=== PATIENT | male | born 1935 | race Caucasian/White ===

== ENCOUNTER 2019-11-29 13:02 | Inpatient (IN) ==
[2019-11-29 13:54] LABS: Basophils % 0.4 %; Eosinophils % 0.4 %; Hematocrit 34.7 % (37.5-50.1); Hemoglobin 10.6 g/dL (12.9-16.9); Immature Granulocytes % 0.3 % (0-4); Lymphocytes # 1.1 K/mcL (0.6-4.6); Mean Corpuscular HGB Conc 30.5 g/dL (31.6-35.5); Mean Corpuscular Hemoglobin 27.5 pg (28.0-33.3); Mean Corpuscular Volume 90.1 fL (83.0-100.0); Mean Platelet Volume 10.5 fL (9.4-12.4); Monocytes # 0.8 K/mcL (0.0-1.3); Neutrophils # 7.5 K/mcL (1.6-8.9); Platelet Count 259 K/mcL (140-400); Red Blood Count 3.85 M/mcL (4.19-5.50); Red Cell Distribution Width 17.5 % (11.5-14.5); Segmented Neutrophils % 78.9 %; White Blood Count 9.5 K/mcL (4.3-11.1)
[2019-11-29] MEDS ORDERED: *HR* Promethazine 25 MG/ML VIAL IVP PRN (14:07)
[2019-11-29] MEDS ORDERED: Naloxone 0.4 MG/ML INJ IVP PRN (14:07)
[2019-11-29] MEDS ORDERED: Acetaminophen 325 MG TABLET PO PRN (14:07)
[2019-11-29 14:13] LABS: Albumin 3.5 g/dL (3.5-5.7); Albumin/Globulin Ratio 0.8 (1.1-2.2); Bilirubin,Direct 0.4 mg/dL (0.0-0.2); Bilirubin,Indirect 0.5 mg/dL (0.0-1.0); Bilirubin,Total 0.9 mg/dL (0.3-1.0); Calcium 9.4 mg/dL (8.6-10.3); Globulin 4.3 g/dL (2.4-3.5); Potassium 3.6 mEq/L (3.5-5.1); Total Protein 7.8 g/dL (6.4-8.9); Troponin I 0.05 ng/mL (< 0.04)
[2019-11-29] MEDS ORDERED: Perflutren Lipid Microsphere 1.3 ML in 0.9 % Sodium Chloride 8.7 ML IVP PRN (14:14)
[2019-11-29] MEDS ORDERED: Dextrose Gel 15 GM/37.5 ML TUBE PO PRN ×2 (14:15)
[2019-11-29] MEDS ORDERED: *HR* Dextrose 50 % in Water (Vial) 50 ML VIAL IVP PRN (14:26)
[2019-11-29] MEDS ORDERED: D5% in Water 1,000 ML IVC PRN (14:26)
[2019-11-29] MEDS ORDERED: Furosemide 40 MG/4 ML VIAL IVP ONE (14:46)
[2019-11-29] MEDS ORDERED: Aspirin 325 MG TABLET PO ONE (15:09)
[2019-11-29 15:49] LABS: INR 1.8; Prothrombin Time 20.2 Seconds (9.4-12.1)
[2019-11-29 16:32] LABS: Bilirubin,Urine Negative (Negative); Blood,Urine Negative (Negative); Clarity,Urine Clear (Clear); Color,Urine Yellow (Yellow); Glucose,Urine (UA) Normal (Normal); Ketones,Urine Negative (Negative); Leukocyte Esterase,Urine Negative (Negative); Nitrite,Urine Negative (Negative); Protein,Urine Trace mg/dL (Neg-Trace); Specific Gravity,Urine 1.014 (1.010-1.025)
[2019-11-29] MEDS: carvediloL 6.25 MG TABLET PO SCH (18:05)
[2019-11-29] MEDS: Insulin LISPRO 300 UNITS/3 ML VIAL SQ SCH ×2 (18:05→21:37)
[2019-11-29] MEDS: Apixaban 2.5 MG TABLET PO SCH (21:26)
[2019-11-29] MEDS: Furosemide 40 MG/4 ML VIAL IVP SCH (21:27)
[2019-11-29] MEDS: Sacubitril/Valsartan 97/103 MG 1 TAB TABLET PO SCH (21:27)
[2019-11-30 01:26] LABS: Hematocrit 34.9 % (37.5-50.1); Hemoglobin 10.3 g/dL (12.9-16.9); Mean Corpuscular HGB Conc 29.5 g/dL (31.6-35.5); Mean Corpuscular Hemoglobin 27.1 pg (28.0-33.3); Mean Corpuscular Volume 91.8 fL (83.0-100.0); Mean Platelet Volume 11.1 fL (9.4-12.4); Red Blood Count 3.8 M/mcL (4.19-5.50); Red Cell Distribution Width 17.8 % (11.5-14.5); White Blood Count 11.6 K/mcL (4.3-11.1)
[2019-11-30 02:37] LABS: BUN/Creatinine Ratio 15 (6-26); Blood Urea Nitrogen 20 mg/dL (8-23); Calcium 8.9 mg/dL (8.6-10.3); Carbon Dioxide 27 mEq/L (23-29); Chloride 97 mEq/L (98-107); Glucose 138 mg/dL (70-105); Osmolality,Calculated 289 (280-300); Phosphorous 3.9 mg/dL (2.7-4.5); Potassium 3.7 mEq/L (3.5-5.1); Sodium 137 mEq/L (136-145); eGFR For African Americans > 60 (> 60); eGFR For Non-African Americans 50 (> 60)
[2019-11-30] MEDS: Insulin LISPRO 300 UNITS/3 ML VIAL SQ SCH ×4 (08:16→20:41)
[2019-11-30] MEDS: Apixaban 2.5 MG TABLET PO SCH ×2 (08:33→20:41)
[2019-11-30] MEDS: carvediloL 6.25 MG TABLET PO SCH ×2 (08:33→16:29)
[2019-11-30] MEDS: Furosemide 40 MG/4 ML VIAL IVP SCH (08:33)
[2019-11-30] MEDS: Sacubitril/Valsartan 97/103 MG 1 TAB TABLET PO SCH ×2 (08:34→20:41)
[2019-11-30 16:07] LABS: ABG Base Excess 12 mEq/L (-2 to 3); ABG HCO3 39 mEq/L (21-27); ABG Oxygen Saturation 95 % (95-98); ABG PCO2 66 mmHg (35-45); ABG PH 7.38 pH Units (7.32-7.45); ABG PO2 81 mmHg (85-104); ABG TCO2 41 mEq/L (20-26)
[2019-11-30] MEDS: metOLazone 5 MG TABLET PO SCH (16:29)
[2019-11-30] MEDS: Furosemide 240 MG in 0.9 % Sodium Chloride 96 ML IVC SCH (18:20)
[2019-11-30] MEDS: cefTRIAXone 1,000 MG in Water for inj. (sterile) 10 ML IVP SCH (18:20)
[2019-11-30 22:41] LABS: Calcium 9.1 mg/dL (8.6-10.3); Potassium 3.3 mEq/L (3.5-5.1)
[2019-12-01 03:25] LABS: Basophils % 0.4 %; Eosinophils # 0.1 K/mcL (0.0-0.6); Eosinophils % 1.4 %; Hematocrit 30.9 % (37.5-50.1); Hemoglobin 9.3 g/dL (12.9-16.9); Immature Granulocytes % 0.2 % (0-4); Lymphocytes # 1.3 K/mcL (0.6-4.6); Lymphocytes % 13.3 %; Mean Corpuscular HGB Conc 30.1 g/dL (31.6-35.5); Mean Corpuscular Hemoglobin 27.1 pg (28.0-33.3); Mean Corpuscular Volume 90.1 fL (83.0-100.0); Mean Platelet Volume 10.5 fL (9.4-12.4); Monocytes # 1.1 K/mcL (0.0-1.3); Monocytes % 11.7 %; Neutrophils # 6.9 K/mcL (1.6-8.9); Platelet Count 202 K/mcL (140-400); Red Blood Count 3.43 M/mcL (4.19-5.50); Red Cell Distribution Width 17.3 % (11.5-14.5); White Blood Count 9.5 K/mcL (4.3-11.1)
[2019-12-01 03:39] LABS: Potassium 3.2 mEq/L (3.5-5.1)
[2019-12-01] MEDS: Insulin LISPRO 300 UNITS/3 ML VIAL SQ SCH ×4 (08:27→20:15)
[2019-12-01] MEDS: carvediloL 6.25 MG TABLET PO SCH ×2 (08:37→17:38)
[2019-12-01] MEDS: Apixaban 2.5 MG TABLET PO SCH ×2 (08:37→20:20)
[2019-12-01] MEDS: metOLazone 5 MG TABLET PO SCH (08:38)
[2019-12-01] MEDS: Sacubitril/Valsartan 97/103 MG 1 TAB TABLET PO SCH ×2 (08:38→20:20)
[2019-12-01] MEDS: Furosemide 240 MG in 0.9 % Sodium Chloride 96 ML IVC SCH ×2 (17:01→17:38)
[2019-12-01] MEDS: cefTRIAXone 1,000 MG in Water for inj. (sterile) 10 ML IVP SCH (17:38)
[2019-12-02 05:44] LABS: Basophils % 0.4 %; Eosinophils # 0.2 K/mcL (0.0-0.6); Eosinophils % 1.9 %; Hematocrit 31.3 % (37.5-50.1); Hemoglobin 9.6 g/dL (12.9-16.9); Immature Granulocytes % 0.2 % (0-4); Lymphocytes # 1.3 K/mcL (0.6-4.6); Mean Corpuscular HGB Conc 30.7 g/dL (31.6-35.5); Mean Corpuscular Hemoglobin 27.9 pg (28.0-33.3); Mean Platelet Volume 10.6 fL (9.4-12.4); Monocytes # 1.1 K/mcL (0.0-1.3); Monocytes % 11.4 %; Neutrophils # 6.7 K/mcL (1.6-8.9); Platelet Count 212 K/mcL (140-400); Red Blood Count 3.44 M/mcL (4.19-5.50); Red Cell Distribution Width 17.5 % (11.5-14.5); Segmented Neutrophils % 72.1 %; White Blood Count 9.3 K/mcL (4.3-11.1)
[2019-12-02 06:09] LABS: Calcium 8.8 mg/dL (8.6-10.3); Phosphorous 3.9 mg/dL (2.7-4.5); Potassium 3.5 mEq/L (3.5-5.1)
[2019-12-02] MEDS: Insulin LISPRO 300 UNITS/3 ML VIAL SQ SCH ×4 (08:07→19:47)
[2019-12-02 08:11] LABS: ABG Base Excess 15 mEq/L (-2 to 3); ABG HCO3 42 mEq/L (21-27); ABG Oxygen Saturation 91 % (95-98); ABG PCO2 67 mmHg (35-45); ABG PO2 65 mmHg (85-104); ABG TCO2 44 mEq/L (20-26)
[2019-12-02] MEDS: carvediloL 6.25 MG TABLET PO SCH ×2 (08:56→18:09)
[2019-12-02] MEDS: Sacubitril/Valsartan 97/103 MG 1 TAB TABLET PO SCH (08:56)
[2019-12-02] MEDS: Apixaban 2.5 MG TABLET PO SCH ×2 (08:56→20:45)
[2019-12-02] MEDS: metOLazone 5 MG TABLET PO SCH (08:56)
[2019-12-02] MEDS ORDERED: acetaZOLAMIDE 250 MG TABLET PO ONE (13:27)
[2019-12-02] MEDS ORDERED: Furosemide 240 MG in 0.9 % Sodium Chloride 96 ML IVC SCH (15:56)
[2019-12-02] MEDS: cefTRIAXone 1,000 MG in Water for inj. (sterile) 10 ML IVP SCH (18:10)
[2019-12-02] MEDS: Sacubitril/Valsartan 49/51 MG 1 TABLET PO SCH (21:45)
[2019-12-03 04:52] LABS: Basophils % 0.4 %; Eosinophils # 0.2 K/mcL (0.0-0.6); Eosinophils % 1.6 %; Hematocrit 30.3 % (37.5-50.1); Hemoglobin 9.1 g/dL (12.9-16.9); Immature Granulocytes % 0.4 % (0-4); Lymphocytes # 1.3 K/mcL (0.6-4.6); Lymphocytes % 13.7 %; Mean Corpuscular Hemoglobin 27.4 pg (28.0-33.3); Mean Corpuscular Volume 91.3 fL (83.0-100.0); Mean Platelet Volume 10.3 fL (9.4-12.4); Monocytes % 10.5 %; Neutrophils # 7.1 K/mcL (1.6-8.9); Platelet Count 197 K/mcL (140-400); Red Blood Count 3.32 M/mcL (4.19-5.50); Red Cell Distribution Width 17.3 % (11.5-14.5); Segmented Neutrophils % 73.4 %; White Blood Count 9.7 K/mcL (4.3-11.1)
[2019-12-03 05:08] LABS: Magnesium 2.1 mg/dL (1.6-2.6); Phosphorous 4.1 mg/dL (2.7-4.5); Potassium 3.3 mEq/L (3.5-5.1)
[2019-12-03] MEDS: Insulin LISPRO 300 UNITS/3 ML VIAL SQ SCH ×4 (08:31→20:45)
[2019-12-03] MEDS: carvediloL 6.25 MG TABLET PO SCH ×2 (08:46→17:20)
[2019-12-03] MEDS: Sacubitril/Valsartan 49/51 MG 1 TABLET PO SCH ×2 (08:46→20:53)
[2019-12-03] MEDS ORDERED: acetaZOLAMIDE 250 MG TABLET PO ONE (09:27)
[2019-12-03] MEDS: Furosemide 40 MG TABLET PO SCH ×2 (10:33→17:20)
[2019-12-03] MEDS ORDERED: 0.9 % Sodium Chloride 1,000 ML ONE ×2 (11:17→12:10)
[2019-12-03] MEDS ORDERED: Nitroglycerin 1,000 MCG/10 ML VIAL IV ONE (11:17)
[2019-12-03] MEDS ORDERED: *HR* Heparin 10,000 UNIT/10 ML VIAL ONE (11:17)
[2019-12-03] MEDS ORDERED: Heparin 1,000 UNITS/500 mL 500 ML ONE (11:17)
[2019-12-03] MEDS ORDERED: ISOVUE-370 200 ML INFUS..BTL ONE (11:17)
[2019-12-03] MEDS ORDERED: *HR* FentaNYL (PF) 100 MCG/2 ML VIAL ONE (12:09)
[2019-12-03] MEDS ORDERED: *HR* Midazolam HCl 2 MG/2 ML VIAL ONE (12:09)
[2019-12-03] MEDS ORDERED: Tirofiban 12.5 MG/250ML 12.5 MG/250 ML BAG IVC SCH (12:15)
[2019-12-03] MEDS: Apixaban 2.5 MG TABLET PO SCH ×2 (17:11→20:54)
[2019-12-03] MEDS: cefTRIAXone 1,000 MG in Water for inj. (sterile) 10 ML IVP SCH (17:20)
[2019-12-03] MEDS ORDERED: *HR* Ticagrelor 90 MG TABLET PO SCH (21:00)
[2019-12-04 02:07] LABS: Basophils # 0.1 K/mcL (0.0-0.2); Basophils % 0.6 %; Eosinophils # 0.2 K/mcL (0.0-0.6); Eosinophils % 2.2 %; Hematocrit 30.4 % (37.5-50.1); Hemoglobin 9.2 g/dL (12.9-16.9); Immature Granulocytes % 0.4 % (0-4); Lymphocytes # 1.1 K/mcL (0.6-4.6); Lymphocytes % 13.6 %; Mean Corpuscular HGB Conc 30.3 g/dL (31.6-35.5); Mean Corpuscular Hemoglobin 27.8 pg (28.0-33.3); Mean Corpuscular Volume 91.8 fL (83.0-100.0); Mean Platelet Volume 10.4 fL (9.4-12.4); Monocytes % 12.2 %; Neutrophils # 5.8 K/mcL (1.6-8.9); Platelet Count 190 K/mcL (140-400); Red Blood Count 3.31 M/mcL (4.19-5.50); Red Cell Distribution Width 17.4 % (11.5-14.5); White Blood Count 8.1 K/mcL (4.3-11.1)
[2019-12-04 02:14] LABS: Calcium 9.4 mg/dL (8.6-10.3); Potassium 3.9 mEq/L (3.5-5.1)
[2019-12-04] MEDS: Insulin LISPRO 300 UNITS/3 ML VIAL SQ SCH ×4 (08:39→20:14)
[2019-12-04] MEDS: Furosemide 40 MG TABLET PO SCH ×2 (08:51→16:43)
[2019-12-04] MEDS: Apixaban 2.5 MG TABLET PO SCH ×2 (08:52→20:20)
[2019-12-04] MEDS: Sacubitril/Valsartan 49/51 MG 1 TABLET PO SCH ×2 (08:53→20:21)
[2019-12-04] MEDS: carvediloL 6.25 MG TABLET PO SCH ×2 (08:53→16:43)
[2019-12-04] MEDS: Spironolactone 25 MG TABLET PO SCH (12:05)
[2019-12-04] MEDS: cefTRIAXone 1,000 MG in Water for inj. (sterile) 10 ML IVP SCH (16:57)
[2019-12-05 05:24] LABS: Basophils % 0.3 %; Eosinophils # 0.2 K/mcL (0.0-0.6); Eosinophils % 1.8 %; Hematocrit 31.9 % (37.5-50.1); Hemoglobin 9.5 g/dL (12.9-16.9); Immature Granulocytes % 0.3 % (0-4); Lymphocytes # 1.2 K/mcL (0.6-4.6); Lymphocytes % 13.5 %; Mean Corpuscular HGB Conc 29.8 g/dL (31.6-35.5); Mean Corpuscular Hemoglobin 27.5 pg (28.0-33.3); Mean Corpuscular Volume 92.2 fL (83.0-100.0); Monocytes % 11.5 %; Neutrophils # 6.5 K/mcL (1.6-8.9); Platelet Count 200 K/mcL (140-400); Red Blood Count 3.46 M/mcL (4.19-5.50); Red Cell Distribution Width 17.3 % (11.5-14.5); Segmented Neutrophils % 72.6 %; White Blood Count 8.9 K/mcL (4.3-11.1)
[2019-12-05 05:44] LABS: Calcium 9.5 mg/dL (8.6-10.3); Potassium 3.7 mEq/L (3.5-5.1)
[2019-12-05 07:05] VITALS: BP 97/55
[2019-12-05] MEDS: Insulin LISPRO 300 UNITS/3 ML VIAL SQ SCH (07:37)
[2019-12-05] MEDS: carvediloL 6.25 MG TABLET PO SCH (07:46)
[2019-12-05] MEDS: Furosemide 40 MG TABLET PO SCH (07:46)
[2019-12-05] MEDS: Apixaban 2.5 MG TABLET PO SCH (07:46)
[2019-12-05] MEDS: Spironolactone 25 MG TABLET PO SCH (07:46)
[2019-12-05] MEDS: Sacubitril/Valsartan 49/51 MG 1 TABLET PO SCH (07:46)
== END 2019-12-05 13:40 | disposition home or self-care (01) | DRG 286 ==
LOC: 3BNU 13:02 → EMEROOARM 13:02 → 3BNU 17:27
PROVIDERS: ADMIT Internal Medicine; ATTEND Internal Medicine

== ENCOUNTER 2020-12-05 19:56 | Inpatient (IN) ==
[2020-12-05 21:35] LABS: Basophils % 0.3 %; Eosinophils # 0.1 K/mcL (0.0-0.6); Eosinophils % 0.9 %; Hematocrit 31.5 % (37.5-50.1); Hemoglobin 9.7 g/dL (12.9-16.9); Immature Granulocytes % 0.2 % (0-4); Lymphocytes # 1.3 K/mcL (0.6-4.6); Lymphocytes % 14.5 %; Mean Corpuscular HGB Conc 30.8 g/dL (31.6-35.5); Mean Platelet Volume 10.1 fL (9.4-12.4); Monocytes # 0.7 K/mcL (0.0-1.3); Monocytes % 8.4 %; Neutrophils # 6.6 K/mcL (1.6-8.9); Platelet Count 210 K/mcL (140-400); Red Blood Count 3.35 M/mcL (4.19-5.50); Red Cell Distribution Width 17.7 % (11.5-14.5); Segmented Neutrophils % 75.7 %; White Blood Count 8.7 K/mcL (4.3-11.1)
[2020-12-05 21:41] LABS: VBG Ionized Calcium 1.24 mmol/L (1.15-1.35)
[2020-12-05 21:54] LABS: Albumin 3.7 g/dL (3.5-5.7); Albumin/Globulin Ratio 0.8 (1.1-2.2); Bilirubin,Total 0.4 mg/dL (0.3-1.0); Calcium 9.6 mg/dL (8.6-10.3); Globulin 4.5 g/dL (2.4-3.5); Magnesium 1.8 mg/dL (1.6-2.6); Total Protein 8.2 g/dL (6.4-8.9)
[2020-12-05] MEDS ORDERED: Insulin Human Regular 10 UNIT in 0.9 % Sodium Chloride 10 ML IV ONE (22:35)
[2020-12-05] MEDS ORDERED: Calcium Chloride 1,000 MG in 0.9 % Sodium Chloride 100 ML IVPB ONE (22:35)
[2020-12-05] MEDS ORDERED: *HR* Dextrose 50 % in Water (Vial) 50 ML VIAL IVP ONE (22:45)
[2020-12-05] MEDS ORDERED: 0.9 % Sodium Chloride 1,000 ML IVC ONE (22:46)
[2020-12-05 22:59] LABS: Bilirubin,Urine Negative (Negative); Blood,Urine Negative (Negative); Clarity,Urine Clear (Clear); Color,Urine Light-Yellow (Yellow); Glucose,Urine (UA) Normal (Normal); Hyaline Casts,Urine Few per lpf (None Seen); Ketones,Urine Negative (Negative); Leukocyte Esterase,Urine Moderate (Negative); Mucus,Urine Few per lpf (None-Few); Nitrite,Urine Negative (Negative); Protein,Urine Trace mg/dL (Neg-Trace); RBC,Urine 0-3 per hpf (0-3); Specific Gravity,Urine 1.013 (1.010-1.025); Squamous Epithelial Cell,Urine Few per hpf (None-Few); Urobilinogen,Urine Normal (Normal); WBC,Urine 15-30 per hpf (0-3)
[2020-12-05] MEDS ORDERED: SODIUM ZIRCONIUM CYCLOSILICATE 5 GM POWD.PACK PO STA (23:04)
[2020-12-06] MEDS ORDERED: Acetaminophen 325 MG TABLET PO PRN (00:47)
[2020-12-06] MEDS ORDERED: *HR* OxyCODONE Immed Rel 5 MG TABLET PO PRN (00:47)
[2020-12-06] MEDS ORDERED: *HR* Promethazine 25 MG/ML VIAL IM PRN (00:47)
[2020-12-06] MEDS ORDERED: *HR* HYDROcodone/Acet 5/325 mg TABLET PO PRN (00:47)
[2020-12-06] MEDS ORDERED: Ondansetron 4 MG/2 ML VIAL IVP PRN (00:47)
[2020-12-06] MEDS ORDERED: Melatonin 3 MG TABLET PO PRN (00:47)
[2020-12-06] MEDS ORDERED: Naloxone 0.4 MG/ML INJ IVP PRN (00:47)
[2020-12-06] MEDS ORDERED: Fluticasone Propionate Nasal 50 MCG/SPRAY BOTTLE NS PRN (00:49)
[2020-12-06] MEDS: Ringers Solution, Lactated 1,000 ML IVC SCH ×2 (01:49→09:20)
[2020-12-06 01:50] LABS: Basophils # 0.1 K/mcL (0.0-0.2); Basophils % 0.6 %; Eosinophils # 0.1 K/mcL (0.0-0.6); Eosinophils % 1.2 %; Hematocrit 32.3 % (37.5-50.1); Hemoglobin 9.8 g/dL (12.9-16.9); Immature Granulocytes % 0.4 % (0-4); Lymphocytes # 1.7 K/mcL (0.6-4.6); Lymphocytes % 17.2 %; Mean Corpuscular HGB Conc 30.3 g/dL (31.6-35.5); Mean Corpuscular Hemoglobin 28.4 pg (28.0-33.3); Mean Corpuscular Volume 93.6 fL (83.0-100.0); Mean Platelet Volume 10.4 fL (9.4-12.4); Monocytes # 0.9 K/mcL (0.0-1.3); Platelet Count 229 K/mcL (140-400); Red Blood Count 3.45 M/mcL (4.19-5.50); Red Cell Distribution Width 17.5 % (11.5-14.5); Segmented Neutrophils % 71.6 %; White Blood Count 9.8 K/mcL (4.3-11.1)
[2020-12-06 01:52] LABS: INR 1.6; Prothrombin Time 17.9 Seconds (9.4-12.1)
[2020-12-06 01:57] LABS: Potassium 4.9 mEq/L (3.5-5.1)
[2020-12-06 01:58] LABS: Magnesium 1.8 mg/dL (1.6-2.6); Phosphorous 3.3 mg/dL (2.7-4.5)
[2020-12-06] MEDS ORDERED: NON-FORMULARY MEDICATION 1 EACH EACH (Omega-3s/Dha/Epa/Fish Oil [Fish Oil Omega-3 Softgel] PO SCH (09:00)
[2020-12-06] MEDS ORDERED: Furosemide 40 MG TABLET PO SCH (09:00)
[2020-12-06] MEDS: Multivit/Ca/Min/Fe/FA 1 TAB TABLET PO SCH (09:19)
[2020-12-06] MEDS: Loratadine 10 MG TABLET PO SCH (09:19)
[2020-12-06] MEDS: carvediloL 6.25 MG TABLET PO SCH ×2 (09:19→17:14)
[2020-12-06] MEDS ORDERED: Ringers Solution, Lactated 1,000 ML IVC SCH (11:34)
[2020-12-06] MEDS: Apixaban 2.5 MG TABLET PO SCH (20:26)
[2020-12-07 01:16] LABS: Calcium 9.3 mg/dL (8.6-10.3); Potassium 5.3 mEq/L (3.5-5.1)
[2020-12-07] MEDS: carvediloL 6.25 MG TABLET PO SCH ×2 (07:52→16:00)
[2020-12-07] MEDS: Apixaban 2.5 MG TABLET PO SCH ×2 (07:52→20:50)
[2020-12-07] MEDS: Loratadine 10 MG TABLET PO SCH (07:53)
[2020-12-07] MEDS: Multivit/Ca/Min/Fe/FA 1 TAB TABLET PO SCH (07:53)
[2020-12-07] MEDS: allopurinoL 100 MG TABLET PO SCH (07:53)
[2020-12-08 01:41] LABS: Phosphorous 3.3 mg/dL (2.7-4.5)
[2020-12-08] MEDS: Apixaban 2.5 MG TABLET PO SCH ×2 (10:05→19:38)
[2020-12-08] MEDS: Multivit/Ca/Min/Fe/FA 1 TAB TABLET PO SCH (10:06)
[2020-12-08] MEDS: allopurinoL 100 MG TABLET PO SCH (10:06)
[2020-12-08] MEDS: Loratadine 10 MG TABLET PO SCH (10:07)
[2020-12-08] MEDS: Metoprolol XL (24 HR) Succ 25 MG TAB.ER.24H PO SCH (10:07)
[2020-12-09 00:01] VITALS: O2SAT 99
[2020-12-09 07:13] VITALS: BP 97/41; PULSE 59; TEMP 98.2
[2020-12-09 07:15] LABS: Calcium 8.9 mg/dL (8.6-10.3); Potassium 4.4 mEq/L (3.5-5.1)
[2020-12-09] MEDS: Apixaban 2.5 MG TABLET PO SCH (09:15)
[2020-12-09] MEDS: Multivit/Ca/Min/Fe/FA 1 TAB TABLET PO SCH (09:15)
[2020-12-09] MEDS: allopurinoL 100 MG TABLET PO SCH (09:15)
[2020-12-09] MEDS: Loratadine 10 MG TABLET PO SCH (09:15)
[2020-12-09] MEDS: Metoprolol XL (24 HR) Succ 25 MG TAB.ER.24H PO SCH (09:15)
== END 2020-12-09 11:04 | disposition home or self-care (01) | DRG 683 ==
LOC: EMEROOARM 19:56 → 2ANU 19:56 → SUATTDRO 12-06 15:05
PROVIDERS: ADMIT Internal Medicine; ATTEND Family Medicine

== ENCOUNTER 2021-04-15 10:23 | Inpatient (IN) ==
[2021-04-15 11:16] LABS: Basophils % 0.4 %; Eosinophils # 0.1 K/mcL (0.0-0.6); Eosinophils % 1.2 %; Hematocrit 29.9 % (37.5-50.1); Hemoglobin 8.9 g/dL (12.9-16.9); Immature Granulocytes % 0.3 % (0-4); Lymphocytes % 13.1 %; Mean Corpuscular HGB Conc 29.8 g/dL (31.6-35.5); Mean Corpuscular Hemoglobin 25.6 pg (28.0-33.3); Mean Corpuscular Volume 85.9 fL (83.0-100.0); Mean Platelet Volume 10.9 fL (9.4-12.4); Monocytes # 0.9 K/mcL (0.0-1.3); Monocytes % 11.3 %; Neutrophils # 5.7 K/mcL (1.6-8.9); Platelet Count 183 K/mcL (140-400); Red Blood Count 3.48 M/mcL (4.19-5.50); Red Cell Distribution Width 18.1 % (11.5-14.5); Segmented Neutrophils % 73.7 %; White Blood Count 7.7 K/mcL (4.3-11.1)
[2021-04-15] MEDS ORDERED: Furosemide 40 MG/4 ML VIAL IVP ONE (11:40)
[2021-04-15 11:54] LABS: Potassium 3.9 mEq/L (3.5-5.1); Troponin I 0.06 ng/mL (< 0.04)
[2021-04-15] MEDS ORDERED: Naloxone 0.4 MG/ML INJ IVP PRN (12:58)
[2021-04-15] MEDS ORDERED: Ondansetron 4 MG/2 ML VIAL IVP PRN (12:58)
[2021-04-15] MEDS ORDERED: Acetaminophen 325 MG TABLET PO PRN (12:58)
[2021-04-15] MEDS ORDERED: Perflutren Lipid Microsphere 1.3 ML in 0.9 % Sodium Chloride 8.7 ML IVP PRN (13:03)
[2021-04-15] MEDS: Furosemide 40 MG/4 ML VIAL IVP SCH (17:10)
[2021-04-15] MEDS: Apixaban 5 MG TABLET PO SCH (21:21)
[2021-04-15] MEDS ORDERED: Fluticasone Propionate Nasal 50 MCG/SPRAY BOTTLE NS PRN (22:09)
[2021-04-16 05:16] LABS: Immature Granulocytes % 0.3 % (0-4)
[2021-04-16 05:17] LABS: Basophils % 0.5 %; Eosinophils # 0.1 K/mcL (0.0-0.6); Eosinophils % 1.3 %; Hematocrit 28.9 % (37.5-50.1); Hemoglobin 8.6 g/dL (12.9-16.9); Mean Corpuscular HGB Conc 29.8 g/dL (31.6-35.5); Mean Corpuscular Hemoglobin 25.7 pg (28.0-33.3); Mean Corpuscular Volume 86.3 fL (83.0-100.0); Mean Platelet Volume 11.7 fL (9.4-12.4); Monocytes # 0.9 K/mcL (0.0-1.3); Monocytes % 12.3 %; Platelet Count 191 K/mcL (140-400); Red Blood Count 3.35 M/mcL (4.19-5.50); Red Cell Distribution Width 18.2 % (11.5-14.5); Segmented Neutrophils % 72.6 %; White Blood Count 7.5 K/mcL (4.3-11.1)
[2021-04-16 05:22] LABS: Neutrophils # 5.5 K/mcL (1.6-8.9)
[2021-04-16 05:38] LABS: Calcium 8.9 mg/dL (8.6-10.3); Magnesium 2.5 mg/dL (1.6-2.6); Potassium 3.9 mEq/L (3.5-5.1); Troponin I 0.05 ng/mL (< 0.04)
[2021-04-16] MEDS: Apixaban 5 MG TABLET PO SCH ×2 (07:47→21:20)
[2021-04-16] MEDS: allopurinoL 100 MG TABLET PO SCH (07:47)
[2021-04-16] MEDS: Furosemide 40 MG/4 ML VIAL IVP SCH ×2 (07:48→19:46)
[2021-04-16] MEDS: Loratadine 10 MG TABLET PO SCH (08:00)
[2021-04-16] MEDS ORDERED: (Dapagliflozin Propanediol [Farxiga] 5 MG Tablet) PO SCH (09:00)
[2021-04-16] MEDS ORDERED: Dextrose Gel 15 GM/37.5 ML TUBE PO PRN ×2 (12:26)
[2021-04-16] MEDS ORDERED: *HR* Dextrose 50 % in Water (Syg) 50 ML SYRINGE IVP PRN (12:26)
[2021-04-16] MEDS ORDERED: D5% in Water 1,000 ML IVC PRN (12:30)
[2021-04-16] MEDS: carvediloL 6.25 MG TABLET PO SCH (16:53)
[2021-04-16] MEDS: Albumin 25% 25gram/100mL 25 GM/100 ML IV.SOLN IVPB SCH (16:53)
[2021-04-16] MEDS: Insulin LISPRO 300 UNITS/3 ML VIAL SUBQ SCH (16:54)
[2021-04-17] MEDS: Albumin 25% 25gram/100mL 25 GM/100 ML IV.SOLN IVPB SCH ×2 (02:42→17:49)
[2021-04-17 03:29] LABS: Red Blood Count 3.36 M/mcL (4.19-5.50)
[2021-04-17 03:30] LABS: Hemoglobin 8.6 g/dL (12.9-16.9); Mean Corpuscular HGB Conc 28.7 g/dL (31.6-35.5); Mean Corpuscular Hemoglobin 25.6 pg (28.0-33.3); Mean Corpuscular Volume 89.3 fL (83.0-100.0); Mean Platelet Volume 10.6 fL (9.4-12.4); Platelet Count 151 K/mcL (140-400); Red Cell Distribution Width 18.2 % (11.5-14.5); White Blood Count 6.9 K/mcL (4.3-11.1)
[2021-04-17 03:39] LABS: Calcium 8.9 mg/dL (8.6-10.3); Potassium 4.1 mEq/L (3.5-5.1)
[2021-04-17 03:47] LABS: Estimated Average Glucose 140 mg/dl; Hemoglobin A1C 6.5 %
[2021-04-17 03:49] LABS: Albumin 3.3 g/dL (3.5-5.7)
[2021-04-17] MEDS: Furosemide 40 MG/4 ML VIAL IVP SCH ×2 (06:16→20:59)
[2021-04-17] MEDS: Insulin LISPRO 300 UNITS/3 ML VIAL SUBQ SCH ×3 (07:11→17:49)
[2021-04-17] MEDS: Apixaban 5 MG TABLET PO SCH ×2 (08:07→20:59)
[2021-04-17] MEDS: carvediloL 6.25 MG TABLET PO SCH ×2 (08:07→17:49)
[2021-04-17] MEDS: Loratadine 10 MG TABLET PO SCH (08:07)
[2021-04-17] MEDS: allopurinoL 100 MG TABLET PO SCH (08:07)
[2021-04-18 03:07] LABS: Potassium 4.3 mEq/L (3.5-5.1)
[2021-04-18] MEDS: Albumin 25% 25gram/100mL 25 GM/100 ML IV.SOLN IVPB SCH ×3 (04:10→18:13)
[2021-04-18] MEDS: Insulin LISPRO 300 UNITS/3 ML VIAL SUBQ SCH ×3 (07:43→16:49)
[2021-04-18] MEDS: Furosemide 40 MG/4 ML VIAL IVP SCH ×3 (07:57→21:20)
[2021-04-18] MEDS: carvediloL 6.25 MG TABLET PO SCH ×2 (08:04→16:48)
[2021-04-18] MEDS: Apixaban 5 MG TABLET PO SCH ×2 (08:05→20:01)
[2021-04-18] MEDS: Loratadine 10 MG TABLET PO SCH (08:05)
[2021-04-18] MEDS: Nystatin POWDER 30 GM BOTTLE TP SCH (21:34)
[2021-04-18 22:08] LABS: Bilirubin,Urine Negative (Negative); Blood,Urine Large (Negative); Clarity,Urine Ex.Turbid (Clear); Color,Urine Red (Yellow); Glucose,Urine (UA) Normal (Normal); Ketones,Urine Negative (Negative); Leukocyte Esterase,Urine Trace (Negative); Nitrite,Urine Negative (Negative); Protein,Urine >=300 mg/dL (Neg-Trace)
[2021-04-18 22:09] LABS: Sodium, Urine 16.9 mEq/L
[2021-04-19] MEDS: Albumin 25% 25gram/100mL 25 GM/100 ML IV.SOLN IVPB SCH (02:23)
[2021-04-19] MEDS: Furosemide 40 MG/4 ML VIAL IVP SCH (05:06)
[2021-04-19 05:43] LABS: Hemoglobin 8.8 g/dL (12.9-16.9); Immature Granulocytes % 0.3 % (0-4); Monocytes % 10.1 %
[2021-04-19 05:45] LABS: Basophils % 0.2 %; Hematocrit 30.4 % (37.5-50.1); Lymphocytes # 0.7 K/mcL (0.6-4.6); Lymphocytes % 9.9 %; Mean Corpuscular HGB Conc 28.9 g/dL (31.6-35.5); Mean Corpuscular Hemoglobin 25.5 pg (28.0-33.3); Mean Corpuscular Volume 88.1 fL (83.0-100.0); Mean Platelet Volume 11.5 fL (9.4-12.4); Monocytes # 0.7 K/mcL (0.0-1.3); Nucleated Red Blood Cells 0.3 /100 WBC (0); Platelet Count 149 K/mcL (140-400); Red Blood Count 3.45 M/mcL (4.19-5.50); Red Cell Distribution Width 18.1 % (11.5-14.5); Segmented Neutrophils % 79.5 %; White Blood Count 6.6 K/mcL (4.3-11.1)
[2021-04-19 06:02] LABS: Neutrophils # 5.3 K/mcL (1.6-8.9)
[2021-04-19 06:03] LABS: INR 1.7; Prothrombin Time 18.4 Seconds (9.4-12.1)
[2021-04-19 06:13] LABS: Calcium 9.2 mg/dL (8.6-10.3); Magnesium 2.8 mg/dL (1.6-2.6); Potassium 4.5 mEq/L (3.5-5.1)
[2021-04-19 06:28] LABS: Hypochromasia Present (Not Present); Platelet Estimate Normal (Normal)
[2021-04-19] MEDS: Apixaban 5 MG TABLET PO SCH (07:53)
[2021-04-19] MEDS: Loratadine 10 MG TABLET PO SCH (07:53)
[2021-04-19] MEDS: carvediloL 6.25 MG TABLET PO SCH ×2 (07:53→17:35)
[2021-04-19] MEDS: Insulin LISPRO 300 UNITS/3 ML VIAL SUBQ SCH ×3 (07:53→17:30)
[2021-04-19] MEDS: Nystatin POWDER 30 GM BOTTLE TP SCH ×2 (07:54→21:53)
[2021-04-19] MEDS ORDERED: Furosemide 240 MG in 0.9 % Sodium Chloride 96 ML IVC SCH (11:00)
[2021-04-19 19:57] VITALS: BP 70/46; PULSE 84; TEMP 94.2; O2SAT 84
== END 2021-04-20 04:03 | disposition expired | DRG 291 ==
LOC: EMEROOARM 10:23 → 2ANU 10:23 → SUATTDRO 12:37 → 2ANU 13:27 → SUATTDRO 04-17 14:38
PROVIDERS: ADMIT Pharmacist; ATTEND Internal Medicine